=== PATIENT | male | born 1990 | race Caucasian/White ===

== ENCOUNTER 2018-07-23 23:03 | Emergency (ER) | payer OTHER ==
[2018-07-23] MEDS ORDERED: DIPH,PERTUS(ACELL)TETVAC-LF 0.5 ML VIAL IM ONE (23:06)
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
[2018-07-23 23:27] LABS: Basophils % (A) 0 %; Eosinophils # (A) 0.3 k/uL (0-0.7); Eosinophils % (A) 2 %; HCT 48.3 % (39.0-53.0); HGB 16.4 gm/dL (13.0-17.5); Lymphocytes # (A) 2.4 k/uL (1.0-4.8); Lymphocytes % (A) 17 %; MCH 29.8 pg (25.0-35.0); MCV 87.8 fL (80.0-100.0); Mean Platelet Volume 8.6; Monocytes # (A) 0.5 k/uL (0-1.0); Monocytes % (A) 4 %; Neutrophils % (A) 76 %; Platelet Count 102 k/uL (150-450); RDW 12.8 % (11.5-15.5); WBC 14.4 k/uL (3.8-10.6)
[2018-07-23 23:30] LABS: Glucose,Whole Blood 117 mg/dL (75-99)
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
[2018-07-23 23:35] LABS: Partial Thromboplastin Time 24.9 sec (22.0-30.0); Prothrombin Time 10.4 sec (9.0-12.0)
[2018-07-23 23:47] LABS: ALT 28 U/L (21-72); AST 41 U/L (17-59); Albumin 4.5 g/dL (3.5-5.0); Alkaline Phosphatase 55 U/L (38-126); Amylase 84 U/L (30-110); Anion Gap 12 mmol/L; Blood Urea Nitrogen 14 mg/dL (9-20); Calcium 8.7 mg/dL (8.4-10.2); Carbon Dioxide 25 mmol/L (22-30); Chloride 103 mmol/L (98-107); Glucose 123 mg/dL (74-99); Lipase 42 U/L (23-300); Potassium 3.5 mmol/L (3.5-5.1); Sodium 140 mmol/L (137-145); Total Bilirubin 0.5 mg/dL (0.2-1.3); Total Protein 7.7 g/dL (6.3-8.2)
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
[2018-07-24] MEDS ORDERED: ceFAZolin 1,000 MG in DEXTROSE/WATER 1 50ML.BAG IVPB STA
[2018-07-24 00:05] LABS: Alcohol 203 mg/dL; Creatine Kinase 448 U/L (55-170)
[2018-07-24 00:17] LABS: Creatine Kinase MB 2.4 ng/mL (0.0-2.4); Troponin I <0.012 ng/mL (0.000-0.034)
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
[2018-07-24 01:27] VITALS: BP 97/74; PULSE 80; RESP 16; TEMP 98
== END 2018-07-24 00:08 ==
LOC: EC 23:03
DX: S06.6X0A Traumatic subarachnoid hemorrhage without loss of consciousness, initial encounter (principal); S06.5X0A Traumatic subdural hemorrhage without loss of consciousness, initial encounter; S02.19XA Other fracture of base of skull, initial encounter for closed fracture; F10.129 Alcohol abuse with intoxication, unspecified; S40.211A Abrasion of right shoulder, initial encounter; V86.52XA Driver of snowmobile injured in nontraffic accident, initial encounter; Y93.29 Activity, other involving ice and snow
CPT/HCPCS: 36415; 93005; 86900; 86901; 80053; 82150; 82550; 82553; 83605; 83690; 84484; 85025; 85610; 85730; 86850; 80320; 71045; 72125; 70450; 74177; 99285; Q9967

== ENCOUNTER → 2018-08-31 | Outpatient (CLI) | payer BC ==
--- NOTE | 2018-08-31 13:53 | CT ---
EXAMINATION TYPE: CT brain wo con DATE OF EXAM: 08/31/2018 COMPARISON: 07/23/2018 HISTORY: Follow-up intracranial hemorrhage CT DLP: 1064 mGycm. Automated Exposure Control for Dose Reduction was Utilized. TECHNIQUE: CT scan of the head is performed without contrast. FINDINGS: There is interval marked improvement with complete resolution of the multiple areas of acut e hemorrhage. No midline shift or mass effect. There is a stable appearing mildly displaced fracture involving the right temporal and parietal bone. There is a small mucous retention cyst within the right maxillary sinus. IMPRESSION: 1. Interval resolution of previously described intracranial hemorrhage. 2. Persistent fractures involving the right temporal and parietal bone
== END | disposition home or self-care (01) ==
LOC: RADCTMAIN 12:18
PROVIDERS: ATTEND Nurse Practitioner
DX: S02.19XD Other fracture of base of skull, subsequent encounter for fracture with routine healing (principal); S06.9X0D Unspecified intracranial injury without loss of consciousness, subsequent encounter
CPT/HCPCS: 70450